=== PATIENT | female | born 1960 | race Caucasian/White ===

== ENCOUNTER 2019-01-05 10:50 | Emergency (ER) | payer OTHER ==
[~2019-01-05] VITALS: Ht 154.9 cm; Wt 70.6 kg
[~2019-01-05 10:50] MED LIST: ACET500C5 PO; HYDR25TA6; POLY15DR42 BOTH EYES
[2019-01-05 10:51] VITALS: Ht 154.9 cm; Wt 70.6 kg
[2019-01-05] MEDS ORDERED: HYDROmorphONE 1 MG/ML SYG IV STA (15:34)
[2019-01-05] MEDS ORDERED: ONDANSETRON 4 MG INJ IV STA (15:34)
[2019-01-05] MEDS ORDERED: SOD CHLORIDE 0.9% 1,000 ML IV STA (15:34)
[2019-01-05] MEDS ORDERED: HYDR25TA6 PO (16:08)
[2019-01-05] MEDS ORDERED: OMEP40CA6 PO (16:09)
[2019-01-05] MEDS ORDERED: POTASSIUM CHLORIDE (SR) 20 MEQ TAB PO STA (17:07)
[2019-01-05] MEDS ORDERED: SOD CHLORIDE 0.9% 100 ML ONE (17:10)
[2019-01-05] MEDS ORDERED: IOHEXOL 300MG/ML 150 ML BTL ONE (17:10)
[2019-01-05 18:01] VITALS: BP 112/78; PULSE 78; RESP 26
--- NOTE | 2019-01-05 18:10 | ERD ---
ER Documentation Chief Complaint Chief Complaint abdominal pain & diarrhea x2 wks, since being in [facility] This is a 58-year-old female who is here for abdominal pain for a day and a half with a little bit of vomiting is nonbilious nonbloody. No diarrhea. Pain is described as crampy and intermittent no back pain no hematuria no dysuria pain is located between the epigastrium and the umbilicus. Patient has a history of colon cancer with resection in the past no chest pain shortness of breath or fever ROS All systems reviewed and are negative except as per history of present illness. Medications Home Meds Reported Medications Omeprazole* (Omeprazole*) 40 Mg Capsule.dr, 40 MG PO DAILY, #30 CAP 01/05/19 Hydrochlorothiazide* (Hydrochlorothiazide*) 25 Mg Tab, 25 MG PO DAILY, #30 TAB 01/05/19 Discontinued Reported Medications Hydrochlorothiazide (Hydrochlorothiazide) 25 Mg Tablet 08/22/09 Discontinued Scripts Artificial Tears* (Artificial Tears* Ophth) 15 ml Opht, 2 DROP BOTH EYES QID, #1 EA Prov:DAKOTA MCCALL PA-C 01/06/16 Acetaminophen* (Tylophen*) 500 Mg Capsule, 2 CAP PO Q8H PRN for PAIN AND OR ELEVATED TEMP, #20 CAP Prov:DAKOTA MCCALL PA-C 01/06/16 Allergies Allergies: Coded Allergies: No Known Drug Allergy (Verified Allergy, Mild, 01/05/19) PMhx/Soc History of Surgery: Yes (COLON CANCER SURGERY 2004, C SECTION) Hx Neurological Disorder: No Hx Respiratory Disorders: No Hx Cardiac Disorders: Yes (HTN) Hx Miscellaneous Medical Probl: No Hx Alcohol Use: No Hx Substance Use: No Hx Tobacco Use: No Smoking Status: Never smoker FmHx Family History: No coronary disease Physical Exam Vitals Vital Signs Date Temp Pulse Resp B/P (MAP) Pulse Ox O2 O2 Flow FiO2 Time Delivery Rate 01/05/19 98.2 78 26 112/78 94 Room Air 18:01 (89) 01/05/19 98.2 73 12 107/71 94 Room Air 17:01 (83) 01/05/19 98.2 70 12 127/81 94 Room Air 16:17 (96) 01/05/19 98.2 70 18 133/82 97 Room Air 15:31 (99) 01/05/19 98.2 85 18 133/82 97 10:51 (99) Physical Exam Const: Well-developed, well-nourished Head: Atraumatic, normocephalic Eyes: Normal Conjunctiva, PERRLA, EOMI, normal sclera, no nystagmus ENT: Normal External Ears, Nose and Mouth, moist mucus membranes. Neck: Full range of motion. No meningismus, no lymphadenopathy. Resp: Clear to auscultation bilaterally, no wheezing, rhonchi, rales Cardio: Regular rate and rhythm, no murmurs, S1 S2 present Abd: Soft, mild mid abdominal pain, non distended. Normal bowel sounds, no guarding or rebound, no pulsitile abdominal masses or bruits Skin: No petechiae or rashes, no ecchymosis , no maculopapular rash Back: No midline or flank tenderness Ext: No cyanosis, or edema, FROM x 4, normal inspection, ne urovascularly intact x 4 Neur: Awake and alert, STR 5/5 x 4, sensation intact x 4, no focal fi ndings, cerebellum intact Psych: Normal Mood and Affect Result Diagram: 01/05/19 1550 01/05/19 1550 Results 24 hrs Laboratory Tests Test 01/05/19 15:50 White Blood Count 7.6 10^3/ul Red Blood Count 4.43 10^6/ul Hemoglobin 14.3 g/dl Hematocrit 41.4 % Mean Corpuscular Volume 93.5 fl Mean Corpuscular Hemoglobin 32.3 pg Mean Corpuscular Hemoglobin Concent 34.5 g/dl Red Cell Distribution Width 12.8 % Platelet Count 205 10^3/UL Mean Platelet Volume 11.4 fl Immature Granulocytes % 0.500 % Neutrophils % 62.2 % Lymphocytes % 22.0 % Monocytes % 8.9 % Eosinophils % 6.0 % Basophils % 0.4 % Nucleated Red Blood Cells % 0.0 /100WBC Immature Granulocytes # 0.040 10^3/ul Neutrophils # 4.7 10^3/ul Lymphocytes # 1.7 10^3/ul Monocytes # 0.7 10^3/ul Eosinophils # 0.5 10^3/ul Basophils # 0.0 10^3/ul Nucleated Red Blood Cells # 0.0 10^3/ul Sodium Level 142 mmol/L Potassium Level 2.9 mmol/L Chloride Level 101 mmol/L Carbon Dioxide Level 32 mmol/L Anion Gap 9 Blood Urea Nitrogen 10 mg/dl Creatinine 0.66 mg/dl Est Glomerular Filtrat Rate mL/min > 60 mL/min Glucose Level 104 mg/dl Calcium Level 8.9 mg/dl Total Bilirubin 0.2 mg/dl Direct Bilirubin 0.00 mg/dl Indirect Bilirubin 0.2 mg/dl Aspartate Amino Transf (AST/SGOT) 37 IU/L Alanine Aminotransferase (ALT/SGPT) 37 IU/L Alkaline Phosphatase 112 IU/L Total Protein 7.6 g/dl Albumin 4.2 g/dl Globulin 3.40 g/dl Albumin/Globulin Ratio 1.23 Lipase 90 U/L Current Medications Medications Dose Sig/Domingo Start Time Status Last (Trade) Ordered Route PRN Stop Time Admin Dose Reason Admin Sodium 1,000 ml @ Q1H STAT 01/05/19 DC 01/05/19 Chloride 1,000 mls/hr IV 15:34 15:44 01/05/19 16:33 1 mg ONCE STAT 01/05/19 DC 01/05/19 Hydromorphone IV 15:34 15:46 HCl 01/05/19 15:35 (Dilaudid) Ondansetron 4 mg ONCE STAT 01/05/19 DC 01/05/19 HCl (Zofran IV 15:34 15:45 Inj) 01/05/19 15:35 Potassium 40 meq ONCE STAT 01/05/19 DC 01/05/19 Chloride PO 17:07 17:11 (Klor-Con 20) 01/05/19 17:08 Iohexol 150 ml STK-MED 01/05/19 DC (Omnipaque ONCE .ROUTE 17:10 300mg/ ml) 01/05/19 17:11 Sodium 100 ml @ ud STK-MED 01/05/19 DC Chloride ONCE .ROUTE 17:10 01/05/19 17:11 IV Flush 10 ml STK-MED 01/05/19 DC (NS 10 ml) ONCE .ROUTE 17:10 01/05/19 17:11 Procedures/MDM Patient: BRETT GILL : 1960 Age: 58 Sex: F MR #: [id number] DOS: 01/05/19 1534 Ordering MD: IFEANYI PRYOR DO Location: E/R Room/Bed: PROCEDURE: CT Abdomen and Pelvis with contrast. CLINICAL INDICATION: Abdominal Pain TECHNIQUE: CT scan of the abdomen and pelvis with contrast was performed on a multi-detector high-resolution CT scanner. The patient was scanned following the uncomplicated intravenous administration of 90 cc of Omnipaque-300 IV contrast. Oral contrast was not administered. Coronal and sagittal reformatted images were obtained from the axial source images. DICOM images are available. CTDI equals 13.29 mGy, and DLP equals 750.27 mGy-cm. One or more of the following dose reduction techniques were used: - Automated exposure control. - Adjustment of the mA and/or kV according to patient size. - Use of iterative reconstruction technique. COMPARISON: None. FINDINGS: Lower thorax: Normal. Liver: Normal. Bile Ducts: No biliary dilatation. Gallbladder: Normal Pancreas: Normal. Spleen: Normal. Adrenal Glands: Normal. Kidneys/Ureters: Normal. Bladder: Small amount of gas in the bladder. Reproductive organs: Uterus is present. No gross adnexal masses Gastrointestinal Tract: 2 layering hyperdensities in the stomach reflecting ingested material measuring 2.5 cm and 2.4 cm, known etiology. There is a side to side descending/sigmoid colonic anastomosis which is widely patent. No evidence of appendicitis. No dilated loops of small bowel to suggest a small bowel obstruction. Peritoneum/Retroperitoneum: No free fluid or free air. Lymph nodes: No bulky adenopathy. Vessels: Partially calcified splenic artery aneurysm measuring 1.6 x 0.9 cm (series 3 image 43). Abdominal/Pelvic Wall: Anterior body wall vertical scar. Bones: Mild multilevel degenerative changes of the visualized spine. IMPRESSION: 1. Side to side descending/sigmoid colonic anastomosis which is widely patent. No dilated loops of bowel to suggest an obstruction. 2. Small amount of gas in the bladder. If there is no recent instrumentation/Jansen catheter placement, consider infection with gas-forming organism. 3. Partially calcified splenic artery aneurysm measuring 1.6 x 0.9 cm. 4. Additional findings as above. RPTAT: HH Shelia Quinones, Physician Date Time Electronically viewed and signed by Shelia Quinones, Physician on 01/05/2019 17:47 RP/ CC: IFEANYI PRYOR DO [id number] Patient's potassium was little bit low at 2.9 she is got replaced with oral potassium. CT scan does not show any acute process going on blood work is stable. Will treat symptomatically. May have a foodborne illness or virus Patient feels much better at this time, and vital signs are normal, symptoms have improved. I did give strict instructions to return to the ED if symptoms continue or worsen, patient will otherwise follow-up with primary care physician. Patient understood instructions and agreed to plan. Disclaimer: Inadvertent spelling and grammatical errors are likely due to EHR/dictation software use and do not reflect on the overall quality of patient care. Also, please note that the electronic time recorded on this note does not necessarily reflect the actual time of the patient encounter. Departure Diagnosis: Primary Impression: Abdominal pain Abdominal location: generalized Qualified Codes: R10.84 - Generalized abdominal pain Condition: Stable IFEANYI PRYOR DO Jan 05, 2019 18:10
[2019-01-05] MEDS ORDERED: ONDA4TAB14 PO (18:11)
[2019-01-05] MEDS ORDERED: HYDR-3980 PO (18:11)
[2019-01-05] MEDS ORDERED: CIPR500T4 PO (18:15)
[2019-01-05] MEDS ORDERED: DIPH1TAB PO (18:15)
[2019-01-05] MEDS ORDERED: ONDANSETRON (ODT) 4 MG TAB ODT STA (18:20)
== END 2019-01-05 18:35 | disposition home or self-care (01) ==
LOC: E/R 10:50
DX: R10.84 Generalized abdominal pain (principal); I10 Essential (primary) hypertension; Z85.038 Personal history of other malignant neoplasm of large intestine
CPT/HCPCS: 36415; 74177; 80053; 83690; 85025; 96374; 96375; J1170; J2405; J7030; Q9967; Z7502; Z7610